=== PATIENT | female | born 1930 | race Caucasian/White ===

== ENCOUNTER 2017-11-18 11:22 | Inpatient (IN) | payer MEDICARE, OTHER ==
[~2017-11-18] VITALS: Ht 152.4 cm; Wt 61.3 kg
[2017-11-18] MEDS ORDERED: SODIUM CHLORIDE 0.9% 500 ML IVB ONE (11:29)
[2017-11-18 11:50] LABS: Basophils # (auto) 0 uL; Basophils % (auto) 0.5 % (0.0-2.0); Eosinophils # (auto) 0.2 uL; Eosinophils % (auto) 3.9 % (0.0-7.0); Hematocrit 39.7 % (36.0-46.0); Hemoglobin 13.2 g/dL (12.2-16.2); Lymphocytes # (auto) 0.8 uL; Mean Corpuscular Hemoglobin 31.4 pg (28.0-32.0); Mean Corpuscular Hgb Conc. 33.3 g/dL (32.0-36.0); Mean Corpuscular Volume 94.5 fL (80.0-100.0); Monocytes # (auto) 0.6 uL; Monocytes % (auto) 9.9 % (0.0-12.0); Neutrophils # (auto) 4.5 uL; Neutrophils % (auto) 72.7 % (37.0-80.0); Nucleated Red Blood Cells % 0.1 %; Platelet Count (auto) 260 10^3/uL (140-450); Red Blood Cells 4.21 10^6/uL (4.0-5.20); Red Cell Distribution Width 14.3 % (11.8-14.3); White Blood Cell 6.2 10^3/uL (4.4-10.8)
[2017-11-18 12:15] LABS: Albumin 3.4 g/dL (3.4-5.0); BUN/Creatinine Ratio 34.3; Bilirubin, Total 0.5 mg/dL (0.2-1.0); Calcium 9.2 mg/dL (8.5-10.1); Magnesium 2.3 mg/dL (1.6-2.6); Potassium 4.4 mmol/L (3.5-5.1); Total Protein 7.1 g/dL (6.4-8.2)
[2017-11-18] MEDS ORDERED: NITROGLYCERIN 0.4 MG SL TAB SL PRN (19:15)
[2017-11-18] MEDS ORDERED: PROMETHAZINE HCL 25 MG/ML 1ML IV PRN (19:15)
[2017-11-18] MEDS ORDERED: LORazepam 0.5 MG TAB PO PRN (19:15)
[2017-11-18] MEDS ORDERED: TEMAZEPAM 15 MG CAP PO PRN (19:15)
[2017-11-18] MEDS ORDERED: ACETAMINOPHEN 500 MG TAB PO PRN (19:15)
[2017-11-18] MEDS ORDERED: HYDROcodone-ACET 5/325MG TAB PO PRN (19:15)
[2017-11-18] MEDS ORDERED: MORPHINE SULF(PF) 0.5MG/ML 10ML VIAL IV PRN (19:15)
[2017-11-18] MEDS: SODIUM CHLORIDE 0.9% 1,000 ML IV SCH ×2 (19:15→22:50)
[2017-11-18 19:42] LABS: Urine Bacteria MOD /hpf (None Seen); Urine Blood 2+ /uL (Negative); Urine WBC 3481 /hpf (0 - 5); Urine WBC Clumps PRESENT /hpf (None Seen)
[2017-11-18 19:45] LABS: Urine Specific Gravity 1.013 (1.001-1.035)
[2017-11-18] MEDS: FAMOTIDINE (10MG/ML) 2ML VL IV SCH (21:09)
[2017-11-18 22:20] VITALS: BP 122/67
[2017-11-18 23:04] VITALS: BP 122/67
[2017-11-19 05:00] VITALS: BP 119/62
[2017-11-19 07:51] VITALS: BP 113/64
[2017-11-19 08:00] VITALS: BP 113/64
[2017-11-19] MEDS: FAMOTIDINE (10MG/ML) 2ML VL IV SCH (10:03)
[2017-11-19 12:12] VITALS: BP 100/59
[2017-11-19] MEDS ORDERED: CEFTRIAXONE SODIUM 2 GM in D5W 5% 50 ML IV ONE (14:45)
[2017-11-19] MEDS ORDERED: LORA-655 PO ×2 (14:49)
[2017-11-19] MEDS ORDERED: FAMO-12 PO (14:49)
[2017-11-19] MEDS ORDERED: DONE10TA40 PO (14:49)
[2017-11-19] MEDS ORDERED: TRAM50TA2 PO (14:49)
[2017-11-19] MEDS ORDERED: SULI200T4 PO (14:49)
[2017-11-19] MEDS: SODIUM CHLORIDE 0.9% 1,000 ML IV SCH (15:32)
[2017-11-19] MEDS ORDERED: LEV50T PO (16:36)
[2017-11-19] MEDS ORDERED: AMLO5TAB2 PO (16:36)
[2017-11-19] MEDS ORDERED: CALC-315 PO (16:36)
[2017-11-19 16:44] VITALS: BP 115/67
[2017-11-19] MEDS: amLODIPine BESYLATE 5 MG TAB PO SCH (18:47)
[2017-11-19] MEDS: LORazepam 0.5 MG TAB PO SCH (18:47)
[2017-11-19 21:55] VITALS: BP 116/57
[2017-11-19] MEDS ORDERED: CALCIUM W/VIT D (600MG/400IU) TAB PO SCH (22:00)
[2017-11-19] MEDS: SULINDAC 200 MG PO SCH (22:12)
[2017-11-19] MEDS: DONEPEZIL HYDROCHLORIDE 5 MG TAB PO SCH (22:12)
[2017-11-19] MEDS: CALTRATE PO SCH (22:12)
[2017-11-20] MEDS: SODIUM CHLORIDE 0.9% 1,000 ML IV SCH ×3 (01:23→18:47)
[2017-11-20 05:13] VITALS: BP 110/56
[2017-11-20] MEDS: LEVOTHYROXINE SODIUM 50 MCG TAB PO SCH (06:38)
[2017-11-20 07:47] LABS: Basophils # (auto) 0 uL; Basophils % (auto) 0.5 % (0.0-2.0); Eosinophils # (auto) 0.3 uL; Hematocrit 36.8 % (36.0-46.0); Hemoglobin 12.1 g/dL (12.2-16.2); Lymphocytes # (auto) 0.8 uL; Mean Corpuscular Hemoglobin 31.4 pg (28.0-32.0); Monocytes # (auto) 0.5 uL; Neutrophils # (auto) 2.3 uL; Neutrophils % (auto) 59.5 % (37.0-80.0); Nucleated Red Blood Cells % 0.2 %; Platelet Count (auto) 207 10^3/uL (140-450); Red Blood Cells 3.87 10^6/uL (4.0-5.20); Red Cell Distribution Width 14.4 % (11.8-14.3); White Blood Cell 3.9 10^3/uL (4.4-10.8)
[2017-11-20 07:55] LABS: Albumin 2.8 g/dL (3.4-5.0); BUN/Creatinine Ratio 21.1; Bilirubin, Total 0.4 mg/dL (0.2-1.0); Calcium 8.5 mg/dL (8.5-10.1); Potassium 3.8 mmol/L (3.5-5.1); Total Protein 5.9 g/dL (6.4-8.2)
[2017-11-20] MEDS: traMADol HCL 50 MG TAB PO SCH (08:01)
[2017-11-20 09:00] VITALS: BP 121/58
[2017-11-20] MEDS: FAMOTIDINE 20 MG TAB PO SCH (09:06)
[2017-11-20] MEDS: cefTRIAXone 1GM/10ml IVPUSH 10 ML IV SCH (09:06)
[2017-11-20] MEDS: SULINDAC 200 MG PO SCH ×2 (09:07→22:01)
[2017-11-20 12:51] VITALS: BP 123/85
[2017-11-20 17:00] VITALS: BP 131/63
[2017-11-20] MEDS: LORazepam 0.5 MG TAB PO SCH (18:00)
[2017-11-20] MEDS: amLODIPine BESYLATE 5 MG TAB PO SCH (18:01)
[2017-11-20 21:30] VITALS: BP 110/54
[2017-11-20] MEDS: DONEPEZIL HYDROCHLORIDE 5 MG TAB PO SCH (22:01)
[2017-11-20] MEDS: CALTRATE PO SCH (22:01)
[2017-11-21 05:00] VITALS: BP 114/59
[2017-11-21] MEDS: LEVOTHYROXINE SODIUM 50 MCG TAB PO SCH (06:37)
[2017-11-21] MEDS: SODIUM CHLORIDE 0.9% 1,000 ML IV SCH (06:37)
[2017-11-21 08:53] VITALS: BP 110/74
[2017-11-21] MEDS: traMADol HCL 50 MG TAB PO SCH (08:53)
[2017-11-21] MEDS: cefTRIAXone 1GM/10ml IVPUSH 10 ML IV SCH (08:53)
[2017-11-21] MEDS: SULINDAC 200 MG PO SCH (08:54)
[2017-11-21] MEDS: FAMOTIDINE 20 MG TAB PO SCH ×2 (10:00→13:30)
== END 2017-11-21 13:45 | disposition home or self-care (01) | DRG 871 ==
LOC: EDBD 11:22 → ER 11:27 → TELE 11:28 → EAST 22:24 → TELE-EAST 11-19 10:52
PROVIDERS: ADMIT Internal Medicine; ATTEND Family Medicine
DX: A41.9 Sepsis, unspecified organism (principal); G93.41 Metabolic encephalopathy; I69.351 Hemiplegia and hemiparesis following cerebral infarction affecting right dominant side; N39.0 Urinary tract infection, site not specified; E86.0 Dehydration; R62.7 Adult failure to thrive; I10 Essential (primary) hypertension; B96.1 Klebsiella pneumoniae [K. pneumoniae] as the cause of diseases classified elsewhere; E03.9 Hypothyroidism, unspecified; M21.371 Foot drop, right foot; F02.80 Dementia in other diseases classified elsewhere, unspecified severity, without behavioral disturbance, psychotic disturbance, mood disturbance, and anxiety; G30.9 Alzheimer's disease, unspecified; K57.30 Diverticulosis of large intestine without perforation or abscess without bleeding; Z90.49 Acquired absence of other specified parts of digestive tract; Z74.01 Bed confinement status; Z87.81 Personal history of (healed) traumatic fracture
CPT/HCPCS: 36415; 74176; 80053; 81001; 82150; 83690; 83735; 85025; 85652; 87040; 87086; 87088; 87186; 94761; 96361; 96374; J0696; J3490; J7060

== ENCOUNTER 2018-10-16 11:08 | Emergency (ER) | payer MEDICARE, OTHER ==
[~2018-10-16] VITALS: Ht 167.6 cm; Wt 81.6 kg
[~2018-10-16 11:08] MED LIST: AMLO5TAB13 PO; CALC-315 PO; DONE10TA40 PO; FAMO-12 PO; LEV50T PO; LORA-655 PO; SULI200T4 PO; TRAM50TA2 PO
[2018-10-16 11:52] LABS: Urine Bacteria FEW /hpf (None Seen); Urine Blood Negative /uL (Negative); Urine Specific Gravity 1.007 (1.001-1.035); Urine WBC 31 /hpf (0 - 5)
[2018-10-16 13:34] LABS: Basophils # (auto) 0 uL; Basophils % (auto) 0.5 % (0.0-2.0); Eosinophils # (auto) 0.2 uL; Eosinophils % (auto) 3.2 % (0.0-7.0); Hematocrit 31.9 % (36.0-46.0); Hemoglobin 10.5 g/dL (12.2-16.2); Lymphocytes # (auto) 0.6 uL; Lymphocytes % (auto) 11.4 % (10.0-50.0); Mean Corpuscular Hgb Conc. 32.8 g/dL (32.0-36.0); Mean Corpuscular Volume 94.5 fL (80.0-100.0); Monocytes # (auto) 0.5 uL; Monocytes % (auto) 9.5 % (0.0-12.0); Neutrophils % (auto) 75.4 % (37.0-80.0); Nucleated Red Blood Cells % 0.2 %; Platelet Count (auto) 260 10^3/uL (140-450); Red Blood Cells 3.38 10^6/uL (4.0-5.20); Red Cell Distribution Width 16.4 % (11.8-14.3); White Blood Cell 5.3 10^3/uL (4.4-10.8)
[2018-10-16 13:49] LABS: Albumin 3.2 g/dL (3.4-5.0); Calcium 9.1 mg/dL (8.5-10.1); Potassium 4.4 mmol/L (3.5-5.1)
[2018-10-16 13:52] LABS: BUN/Creatinine Ratio 36.1; Bilirubin, Total 0.9 mg/dL (0.2-1.0); Total Protein 7.4 g/dL (6.4-8.2)
[2018-10-16] MEDS ORDERED: cefTRIAXone 1GM/50ML D5W 50 ML IV ONE (16:00)
[2018-10-16 17:46] VITALS: BP 132/42
== END 2018-10-16 18:02 | disposition home or self-care (01) ==
LOC: EDBD 11:08 → ER 11:09
DX: L03.116 Cellulitis of left lower limb (principal); N39.0 Urinary tract infection, site not specified; R74.8 Abnormal levels of other serum enzymes; E46 Unspecified protein-calorie malnutrition; I10 Essential (primary) hypertension; E07.9 Disorder of thyroid, unspecified; Z68.29 Body mass index [BMI] 29.0-29.9, adult; Z90.49 Acquired absence of other specified parts of digestive tract; Z79.899 Other long term (current) drug therapy; Z86.73 Personal history of transient ischemic attack (TIA), and cerebral infarction without residual deficits
CPT/HCPCS: 36415; 80053; 81001; 85025; 93971; 96365; 99284; J0696; 51701

== ENCOUNTER 2019-02-24 08:27 | Inpatient (IN) | payer MEDICARE, OTHER ==
[~2019-02-24] VITALS: Ht 165.1 cm; Wt 74.9 kg
[2019-02-24] VITALS (11 sets, daily range): BP systolic 127–149; BP diastolic 42–64
[2019-02-24] MEDS: SODIUM CHLORIDE 0.9% 1,000 ML IV SCH ×2 (05:35→12:26)
[~2019-02-24 08:27] MED LIST changes: -AMLO5TAB13 PO; +AMLO5TAB15 PO
[2019-02-24] MEDS ORDERED: SODIUM CHLORIDE 0.9% 1,000 ML IVB ONE (09:32)
[2019-02-24 10:32] LABS: Basophils # (auto) 0.1 uL; Eosinophils # (auto) 0.3 uL; Hematocrit 11.1 % (36.0-46.0); Lymphocytes # (auto) 0.9 uL; Mean Corpuscular Hgb Conc. 32.5 g/dL (32.0-36.0); Nucleated Red Blood Cells % 0.2 %; Red Blood Cells 1.46 10^6/uL (4.0-5.20)
[2019-02-24 10:33] LABS: Basophils % (auto) 1.1 % (0.0-2.0); Eosinophils % (auto) 3.4 % (0.0-7.0); Lymphocytes % (auto) 10.2 % (10.0-50.0); Mean Corpuscular Hemoglobin 24.8 pg (28.0-32.0); Mean Corpuscular Volume 76.2 fL (80.0-100.0); Monocytes # (auto) 0.7 uL; Monocytes % (auto) 7.3 % (0.0-12.0); Neutrophils # (auto) 7.2 uL; Platelet Count (auto) 487 10^3/uL (140-450); Red Cell Distribution Width 18.8 % (11.8-14.3); White Blood Cell 9.2 10^3/uL (4.4-10.8)
[2019-02-24 10:40] LABS: Hemoglobin 3.6 g/dL (12.2-16.2)
[2019-02-24 10:47] LABS: Albumin 2.5 g/dL (3.4-5.0); Anion Gap 6 (5-15); Aspartate Aminotransferase 19 U/L (15-37); BUN/Creatinine Ratio 29.9; Blood Urea Nitrogen 20 mg/dL (7-18); Calcium 8.3 mg/dL (8.5-10.1); Carbon Dioxide 23 mmol/L (21-32); Chloride 111 mmol/L (98-107); GFR African American 107 mL/min; GFR Non-African American 88 mL/min; Glucose 105 mg/dL (74-106); Magnesium 2.4 mg/dL (1.6-2.6); Potassium 4.1 mmol/L (3.5-5.1); Sodium 140 mmol/L (136-145)
[2019-02-24 10:51] LABS: Alanine Aminotransferase 18 U/L (13-56); Alkaline Phosphatase 184 U/L (45-117); Bilirubin, Total 0.5 mg/dL (0.2-1.0); Total Protein 6.5 g/dL (6.4-8.2)
[2019-02-24 11:57] LABS: Urine Bacteria MANY /hpf (None Seen); Urine Blood 1+ /uL (Negative); Urine Specific Gravity 1.014 (1.001-1.035); Urine WBC 94 /hpf (0 - 5)
[2019-02-24] MEDS ORDERED: ACETAMINOPHEN 500 MG TAB PO PRN (12:00)
[2019-02-24] MEDS ORDERED: MORPHINE SULF INJ 2 MG/ML SYRINGE 1ML IV PRN ×2 (12:00)
[2019-02-24] MEDS ORDERED: NITROGLYCERIN 0.4 MG SL TAB SL PRN (12:00)
[2019-02-24] MEDS ORDERED: HYDROcodone-ACET 5/325MG TAB PO PRN (12:00)
[2019-02-24] MEDS ORDERED: ONDANSETRON HCL 4 MG/2 ML VIAL IV PRN (12:00)
[2019-02-24 18:52] LABS: Hematocrit 23.8 % (36.0-46.0); Hemoglobin 7.8 g/dL (12.2-16.2)
--- NOTE | 2019-02-24 20:04 | NUR ---
Telemetry admit from [facility] admitted to Telemetry unit. Patient oriented to KIARA NEFF RN primary RN, unit telemetry, room 290, bed A, and unit policies regarding patient care and visiting hours. Patient now on continuous telemetry monitoring, tele box #[id number] and telemetry reading on arrival to unit is sinus rhythm. Patient weighed by bedscale and encouraged to call if they need something. All questions and concerns addressed, patient verbalized understanding.
[2019-02-24] MEDS: DONEPEZIL HYDROCHLORIDE 5 MG TAB PO SCH (21:59)
[2019-02-25] VITALS (7 sets, daily range): BP systolic 143–161; BP diastolic 66–110
--- NOTE | 2019-02-25 | NUR ---
Rounds Patient sleeping. No S/S of distress/SOB or pain. Will continue to monitor changes q1hr and PRN.
--- NOTE | 2019-02-25 04:13 | NUR ---
Rounds Patient sleeping. No S/S of distress/SOB or pain. Will continue to monitor changes q1hr and PRN.
--- NOTE | 2019-02-25 07:30 | NUR ---
Opening Shift Note RECEIVED REPORT FROM NOC RN. Assumed care of patient, awake and alert. No S/S of distress/SOB or pain. BED IN LOWEST, LOCKED POSITION WITH SIDERAILS UP x2 AND CALL LIGHT WITHIN REACH. Instructed on POC and to call for assist PRN, will continue to monitor for changes Q1hr and PRN.
--- NOTE | 2019-02-25 07:30 | NUR ---
SHIFT CLOSING NOTE. ENDORSED CARE OF PATIENT TO DAY SHIFT, FARHAT YU.
[2019-02-25] MEDS ORDERED: LEVOTHYROXINE SODIUM 50 MCG TAB PO SCH (08:00)
[2019-02-25] MEDS: cefTRIAXone 1GM/50ML D5W 50 ML IV SCH (08:49)
[2019-02-25] MEDS ORDERED: PANTOPRAZOLE 40 MG TAB PO SCH (10:00)
--- NOTE | 2019-02-25 10:43 | NUR ---
DR. MERRILL AT BEDSIDE.
[2019-02-25] MEDS: PANTOPRAZOLE 40 MG/10 ML VIAL INJ IV SCH ×2 (11:30→23:15)
--- NOTE | 2019-02-25 11:30 | NUR ---
WOUND CARE NOTE: IN TO SEE PATIENT AT THIS TIME PER WOUND CARE CONSULT REQUEST. PATIENT WAS NOTED UPON ADMIT TO HAVE WOUNDS. WOUNDS WERE PHOTOGRAPHED AT THAT TIME BY BEDSIDE NURSE FOR REFERENCE. PATIENT ADMITTED TO [facility] WITH DIAGNOSIS OF SEVERE ANEMIA. CURRENT EDYTA SCORE IS 13. SHE IS ABLE TO ASSIST WITH HER TURNING/REPOSITIONG. PATIENT IS PLEASANTLY CONFUSED. PATIENT IS INCONTINENT OF BOWEL AND BLADDER. CURRENTLY, SHE HAS AN INDWELLING PRASAD CATHETER PLACED. PATIENT HAS HAD MULTIPLE EPISODES WITH INCONTINENT LIQUID STOOL. PATIENT NOTED TO HAVE SEVERE MASD WITH SKIN EROSION TO MULTIPLE AREAS OF PERINEUM/PERIANAL SKIN. PATIENT WOULD BENEFIT FROM: FREQUENT TURN SCHEDULE Q 2HOURS, PRN CONDITION PERMITS, WITH PRESSURE REDISTRIBUTION USING PILLOWS/WEDGES, BID/PRN APPLICATION WITH THICK LAYERS OF ZGUARD/XEROFORM TO SKIN ERODED AREAS OF PERIANAL/PERINEUM, OPTIFOAM GENTLE SACRAL DRESSING PREVENTATIVE, SKIN/WOUND CARE PLAN, DIETARY CONSULT, FREQUENT PERICARE NEEDED AFTER EVERY STOOL, CONTINUED MONITORING BY WOUND CARE TEAM. Addendum: 02/25/19 at 1945 by Maryann Magallanes RN Amended: Links added.
[2019-02-25 13:57] LABS: Potassium 3.8 mmol/L (3.5-5.1)
[2019-02-25 14:10] LABS: Basophils # (auto) 0 uL; Lymphocytes # (auto) 0.8 uL; Monocytes # (auto) 0.6 uL; Neutrophils # (auto) 7.3 uL
[2019-02-25 14:13] LABS: Basophils % (auto) 0.5 % (0.0-2.0); Eosinophils # (auto) 0.2 uL; Eosinophils % (auto) 2.7 % (0.0-7.0); Hematocrit 25.8 % (36.0-46.0); Hemoglobin 8.2 g/dL (12.2-16.2); Mean Corpuscular Hgb Conc. 31.7 g/dL (32.0-36.0); Mean Corpuscular Volume 82.1 fL (80.0-100.0); Neutrophils % (auto) 80.8 % (37.0-80.0); Nucleated Red Blood Cells % 0.4 %; Platelet Count (auto) 408 10^3/uL (140-450); Red Blood Cells 3.14 10^6/uL (4.0-5.20); Red Cell Distribution Width 17.6 % (11.8-14.3)
[2019-02-25] MEDS: SODIUM CHLORIDE 0.9% 1,000 ML IV SCH (15:38)
[2019-02-25 18:28] LABS: Basophils # (auto) 0 uL; Basophils % (auto) 0.4 % (0.0-2.0); Eosinophils # (auto) 0.3 uL; Monocytes # (auto) 0.8 uL
[2019-02-25 18:30] LABS: Hematocrit 25.9 % (36.0-46.0); Hemoglobin 8.3 g/dL (12.2-16.2); Lymphocytes % (auto) 10.1 % (10.0-50.0); Mean Corpuscular Volume 81.3 fL (80.0-100.0); Monocytes % (auto) 8.3 % (0.0-12.0); Neutrophils # (auto) 7.4 uL; Neutrophils % (auto) 78.2 % (37.0-80.0); Nucleated Red Blood Cells % 0.3 %; Platelet Count (auto) 400 10^3/uL (140-450); Red Blood Cells 3.18 10^6/uL (4.0-5.20); Red Cell Distribution Width 17.8 % (11.8-14.3); White Blood Cell 9.5 10^3/uL (4.4-10.8)
--- NOTE | 2019-02-25 19:30 | NUR ---
Opening Shift Note Assumed care of patient, awake, alert and oriented x1. No S/S of distress/SOB or pain. Instructed on POC and to call for assist PRN, will continue to monitor for changes Q1hr and PRN.
[2019-02-25] MEDS: DONEPEZIL HYDROCHLORIDE 5 MG TAB PO SCH (23:15)
[2019-02-26] MEDS: SODIUM CHLORIDE 0.9% 1,000 ML IV SCH ×2 (03:57→17:23)
[2019-02-26 05:29] VITALS: BP 115/54
[2019-02-26 07:43] LABS: Basophils # (auto) 0.1 uL; Basophils % (auto) 0.8 % (0.0-2.0); Eosinophils # (auto) 0.4 uL; Eosinophils % (auto) 3.5 % (0.0-7.0); Hematocrit 27.1 % (36.0-46.0); Lymphocytes # (auto) 1.2 uL; Lymphocytes % (auto) 11.3 % (10.0-50.0); Mean Corpuscular Hemoglobin 27.3 pg (28.0-32.0); Mean Corpuscular Hgb Conc. 33.3 g/dL (32.0-36.0); Mean Corpuscular Volume 81.9 fL (80.0-100.0); Monocytes # (auto) 1.7 uL; Monocytes % (auto) 15.3 % (0.0-12.0); Neutrophils # (auto) 7.6 uL; Neutrophils % (auto) 69.1 % (37.0-80.0); Nucleated Red Blood Cells % 0.4 %; Platelet Count (auto) 369 10^3/uL (140-450); Red Blood Cells 3.31 10^6/uL (4.0-5.20); Red Cell Distribution Width 18.1 % (11.8-14.3)
[2019-02-26] MEDS: LEVOTHYROXINE SODIUM 25 MCG TAB PO SCH (08:17)
[2019-02-26 08:34] VITALS: BP 154/74
[2019-02-26] MEDS: cefTRIAXone 1GM/50ML D5W 50 ML IV SCH (08:53)
--- NOTE | 2019-02-26 10:25 | NUR ---
DR. MERRILL AT BEDSIDE.
[2019-02-26] MEDS: PANTOPRAZOLE 40 MG/10 ML VIAL INJ IV SCH ×2 (10:27→23:08)
[2019-02-26] MEDS ORDERED: CIPROFLOXACIN 400MG/200ML 200 ML IV ONE (11:00)
[2019-02-26 12:02] VITALS: BP 147/63
[2019-02-26 12:30] VITALS: BP 147/63
[2019-02-26 14:10] LABS: Albumin 2.7 g/dL (3.4-5.0); BUN/Creatinine Ratio 7.5; Calcium 8.5 mg/dL (8.5-10.1); Magnesium 2.2 mg/dL (1.6-2.6)
--- NOTE | 2019-02-26 14:15 | NUR ---
NUTRITION CONSULT/ASSESSMENT NOTES Please refer to link notes of nutrition screen form filed under the intervention section of the plan of care for further details. Est. Needs: 1650 kcal to 2050 kcal (20-25 kcal/kgBW), 82 gms to 98 gms pro (1.0-1.2 gms/kgBW). Will continue to monitor pertinent labs and reassess nutrient need prn Thank you for this consult. Addendum: 02/26/19 at [address] Amended: Links added.
[2019-02-26 14:20] LABS: Bilirubin, Total 0.1 mg/dL (0.2-1.0); Potassium 3.8 mmol/L (3.5-5.1); Total Protein 7.2 g/dL (6.4-8.2)
--- NOTE | 2019-02-26 15:15 | NUR ---
IV removal IV DC'd with clean sterile technique, catheter fully intact. Pressure dressing applied to site. Patient tolerated well.
--- NOTE | 2019-02-26 15:15 | NUR ---
IV insertion IV access obtained, via clean sterile technique by inserting 22 gauge catheter at RIGHT UPPER CHEST after 2 attempt(s). IV secured properly. No trauma to site. Patient tolerated well.
[2019-02-26 17:28] VITALS: BP 145/48
--- NOTE | 2019-02-26 19:00 | NUR ---
Opening Shift Note Assumed care of patient, awake and alert and oriented x 2. No S/S of distress/SOB or pain. Instructed on POC and to call for assist PRN, will continue to monitor for changes Q1hr and PRN.
[2019-02-26 21:18] VITALS: BP 167/61
[2019-02-26] MEDS: CIPROFLOXACIN 400MG/200ML 200 ML IV SCH (23:08)
[2019-02-26] MEDS: DONEPEZIL HYDROCHLORIDE 5 MG TAB PO SCH (23:08)
[2019-02-27] MEDS ORDERED: ENALAPRILAT 1.25 MG/ML-1ML VIAL IV PRN
[2019-02-27 05:15] VITALS: BP 154/76
[2019-02-27] MEDS: SODIUM CHLORIDE 0.9% 1,000 ML IV SCH ×2 (07:00→22:59)
--- NOTE | 2019-02-27 08:00 | NUR ---
Morning note Patient resting in bed with even and unlabored respirations, no distress noted. Patient is A&Ox3 (name/, place and time). Instructed patient on POC, fall precautions and to call for assistance as needed. Patient verbalized understanding. Fall precautions in place with bed in lowest locked position, x2 side rails up and call light within reach. Bed alarm on for safety. Hurley catheter patent and draining.
[2019-02-27 09:31] VITALS: BP 150/73
[2019-02-27] MEDS: PANTOPRAZOLE 40 MG/10 ML VIAL INJ IV SCH ×2 (09:32→22:58)
[2019-02-27] MEDS: CIPROFLOXACIN 400MG/200ML 200 ML IV SCH ×2 (09:32→22:58)
[2019-02-27] MEDS: LEVOTHYROXINE SODIUM 25 MCG TAB PO SCH (09:33)
--- NOTE | 2019-02-27 09:50 | NUR ---
RE: BM Patient had moderate amount of liquid, brown, foul smelling BM. No blood noted. Patient cleansed and repositioned for comfort. Z-guard applied per MD's order. Patient tolerated okay. Minimal facial grimacing noted. PRN pain medication not requested. Bed returned to lowest locked position with bed alarm on for safety. Call light within reach.
--- NOTE | 2019-02-27 10:57 | NUR ---
SCD's placed per MD's order
[2019-02-27 11:12] LABS: Anion Gap 10 (5-15); BUN/Creatinine Ratio 6.6; Blood Urea Nitrogen 5 mg/dL (7-18); Calcium 7.8 mg/dL (8.5-10.1); Carbon Dioxide 21 mmol/L (21-32); Chloride 109 mmol/L (98-107); GFR African American 92 mL/min; GFR Non-African American 76 mL/min; Glucose 124 mg/dL (74-106); Potassium 3.7 mmol/L (3.5-5.1); Sodium 140 mmol/L (136-145)
[2019-02-27 11:13] LABS: Basophils # (auto) 0 uL; Basophils % (auto) 0.6 % (0.0-2.0); Eosinophils # (auto) 0.3 uL; Eosinophils % (auto) 4.4 % (0.0-7.0); Hematocrit 25.6 % (36.0-46.0); Hemoglobin 8.3 g/dL (12.2-16.2); Lymphocytes # (auto) 0.6 uL; Lymphocytes % (auto) 9.2 % (10.0-50.0); Mean Corpuscular Hemoglobin 25.7 pg (28.0-32.0); Mean Corpuscular Hgb Conc. 32.3 g/dL (32.0-36.0); Mean Corpuscular Volume 79.5 fL (80.0-100.0); Monocytes # (auto) 0.6 uL; Monocytes % (auto) 9.5 % (0.0-12.0); Neutrophils # (auto) 4.8 uL; Neutrophils % (auto) 76.3 % (37.0-80.0); Nucleated Red Blood Cells % 0.1 %; Platelet Count (auto) 371 10^3/uL (140-450); Red Blood Cells 3.22 10^6/uL (4.0-5.20); Red Cell Distribution Width 18.5 % (11.8-14.3); White Blood Cell 6.3 10^3/uL (4.4-10.8)
[2019-02-27 11:30] LABS: Free T4 (Free Thyroxine) 0.96 ng/dL (0.89-1.76)
[2019-02-27 11:32] LABS: Folate (Folic Acid) > 24.00 ng/mL (5.38-24)
--- NOTE | 2019-02-27 11:42 | NUR ---
MD was at bedside - Dr. Rodriguez Informed MD of patient's loose stool. MD verbalized understanding. Orders received and read back to verify.
--- NOTE | 2019-02-27 11:45 | NUR ---
Chacha midline/PICC RN spoke with ANNALISA Luo.
[2019-02-27] MEDS ORDERED: IOHEXOL 300 MG/ML 100ML BOTTLE IJ ONE (13:00)
[2019-02-27 13:44] VITALS: BP 137/65
--- NOTE | 2019-02-27 14:36 | NUR ---
Patient resting in bed with even and unlabored respirations, no distress noted. No visitors at bedside. Active midline order in place.
--- NOTE | 2019-02-27 15:15 | NUR ---
20g IV attempted 20g IV insertion attempted by whit Le RN, for active CT ABD/PEL with contrast order. Attempt was unsuccessful. Patient tolerated well. Bed returned to lowest locked position with x2 side rails up, call light within reach and bed alarm on for safety. Active midline order in place. Attempted to call midline/PICC RN. Phone is busy. whit Le RN, aware of active midline order and active CT abd/pel with contrast order.
--- NOTE | 2019-02-27 16:26 | NUR ---
Paged midline/PICC line RN spoke with ANNALISA Wells.
[2019-02-27 17:47] VITALS: BP 142/67
--- NOTE | 2019-02-27 18:30 | NUR ---
RE: active CT ABD/PEL with contrast order. Updated Dr. Rodriguez that CT ABD/PEL with contrast has not been completed due to proper IV access not being obtained. Active midline order in place. verbalized understanding. Order obtained and read back to verify.
--- NOTE | 2019-02-27 18:45 | NUR ---
Closing note patient resting in bed with even and unlabored respirations, no distress noted. Fall precautions in place with bed in lowest locked position, call light within reach, bed alarm on for safety. Bilateral SCD's in place per MD order. 22g IV to right upper chest is patent with no s/s of phlebitis and/or infiltration. Active midline order in place.
--- NOTE | 2019-02-27 18:55 | NUR ---
Visitor at bedside - IV contrast consent Abiola, caregiver, at bedside states "my sister and my mom have power of attorney at law. My sister will be here tomorrow morning at 8:30 and bring the copy of the power of attorney at law and sign the consent."
--- NOTE | 2019-02-27 19:29 | NUR ---
Care endorsed to FARHAT Evans. Addendum: 02/27/19 at 1934 by Marie Nuñez RN Endorsed IV contrast consent to FARHAT Evans. Nathan verbalized understanding.
[2019-02-27 22:00] VITALS: BP 163/76
[2019-02-27] MEDS: DONEPEZIL HYDROCHLORIDE 5 MG TAB PO SCH (22:58)
[2019-02-28 05:21] VITALS: BP 133/91
[2019-02-28 07:06] LABS: RPR Non Reactive (Non Reactive)
--- NOTE | 2019-02-28 07:45 | NUR ---
Opening Shift Note Assumed care of patient, awake, and alert. No S/S of distress/SOB or pain. Bed in low/locked position, bed rails up x2. Instructed on POC and to call for assist PRN with call light within reach. All questions/concerns answered. Will continue to monitor for changes Q1hr and PRN.
[2019-02-28 07:57] VITALS: BP 148/62
[2019-02-28] MEDS: SODIUM CHLORIDE 0.9% 1,000 ML IV SCH ×2 (08:43→20:56)
[2019-02-28] MEDS: LEVOTHYROXINE SODIUM 25 MCG TAB PO SCH (08:43)
[2019-02-28] MEDS: CIPROFLOXACIN 400MG/200ML 200 ML IV SCH ×2 (10:00→21:30)
[2019-02-28] MEDS: PANTOPRAZOLE 40 MG/10 ML VIAL INJ IV SCH ×2 (10:00→21:31)
--- NOTE | 2019-02-28 10:30 | NUR ---
assessment Patient is a 88 year old female who is answering appropriately. Per one of patients caregivers prior to admission patient lived home with 24 hour caregivers and functioned with assistance. Per patient she will return home to her prior living arrangements post discharge and Nora her main caregiver will transport her home. Patient has a wheelchair and hospital bed for home use. Patients PCP is Dr Bowman. Patient is on service with [facility] prior to admission for PT, vitals, and med management. Patient will need a resumption order on discharge. I informed patient she has a right to speak to a high school social studies teacher regarding all care. I informed patient she has a right to participate in any and all discharge planning. Patient has a POA and advanced directive. Her son Mustapha is POA. Patient verbalized understanding and agreed to discharge plan. Addendum: 03/01/19 at 1037 by Tatiana CAPUTO Amended: Links added.
[2019-02-28] MEDS ORDERED: IOHEXOL 300 MG/ML 100ML BOTTLE IJ ONE (11:08)
[2019-02-28 12:51] VITALS: BP 138/63
--- NOTE | 2019-02-28 14:28 | NUR ---
Midline Placement: Patient educated on need for midline placement. All risks and benefits explained and all questions and concerns addresses prior to procedure. 3Fr 20cm midline inserted via brachial vein using Ultrasound. Sterile technique utilized. Blood return obtained from single lumen and flushed easily with NS using proper technique. Midline secured with saline lock; biodisc and occlusive dressing applied. Primary RN notified. Midline lot #[id number] EXTERNAL LENGTH 0CM iNTERNAL LENGTH 20 CM.
[2019-02-28 16:28] VITALS: BP 147/47
--- NOTE | 2019-02-28 19:30 | NUR ---
assumed care, pt. awake, no c/o pain, no sob.
[2019-02-28] MEDS: DONEPEZIL HYDROCHLORIDE 5 MG TAB PO SCH (21:31)
[2019-02-28 22:00] VITALS: BP 145/87
[2019-03-01 06:02] VITALS: BP 123/84
--- NOTE | 2019-03-01 07:20 | NUR ---
Opening Shift Note Assumed care of patient, asleep. No S/S of distress/SOB or pain. Bed in low/locked position, bed rails up x2. Will continue to monitor for changes Q1hr and PRN.
[2019-03-01] MEDS: LEVOTHYROXINE SODIUM 25 MCG TAB PO SCH (08:29)
[2019-03-01] MEDS: PANTOPRAZOLE 40 MG/10 ML VIAL INJ IV SCH ×2 (08:29→21:41)
[2019-03-01] MEDS: CIPROFLOXACIN 400MG/200ML 200 ML IV SCH ×2 (08:30→21:41)
[2019-03-01 09:00] VITALS: BP 127/58
--- NOTE | 2019-03-01 11:15 | NUR ---
MD ROUNDS DR REDD AT BEDSIDE DISCUSSING POC WITH PATIENT. WILL CONTINUE TO MONITOR
--- NOTE | 2019-03-01 11:20 | NUR ---
Nutrition Follow-up Notes Wt.: 71.2 kg Pt. unable to answer nutrition related questions d/t history of Dementia and confusion. Per documentations, pt. is consuming 25-100%, variable appetite x 3 days. No reported GI distress at this time associated with current diet. Est. Needs: 1650 kcal to 2050 kcal (20-25 kcal/kgBW), 82 gms to 98 gms pro (1.0-1.2 gms/kgBW). Will continue to monitor pertinent labs and reassess nutrient need prn Labs: BG 124H, Ca 7.8L Skin: [place] 14, mod risk, MASD to gluteal region GI: +colectomy BM x 2 today per hot tar roofer helper PES: Altered nutrition related lab values RT acute/chronic medical condition AEB hyperglycemia,hypocapnia, hyperchloremia, elev. ALP, hypocalcemia and mod hypoalbuminemia (ongoing) Monitor: Skin integrity, weights, PO intake/tolerance to diet, GI function, labs PO intake to meet >75% estimated needs by following assessment F/U: MR 3-5 days Rec. 1) Continue Clear liquid diet as ordered and as tolerated. When medically able, advance diet to regular diet as tolerated. 2) Continue POC as ordered
[2019-03-01 13:00] VITALS: BP 125/60
[2019-03-01] MEDS: SODIUM CHLORIDE 0.9% 1,000 ML IV SCH (13:08)
[2019-03-01 16:54] VITALS: BP 115/95
--- NOTE | 2019-03-01 19:30 | NUR ---
assumed care, pt. awake, oriented x2, no c/o pain, not in distress.
[2019-03-01] MEDS: DONEPEZIL HYDROCHLORIDE 5 MG TAB PO SCH (21:41)
[2019-03-01 22:00] VITALS: BP 151/68
[2019-03-02] VITALS (12 sets, daily range): BP systolic 130–152; BP diastolic 43–75
[2019-03-02] MEDS: SODIUM CHLORIDE 0.9% 1,000 ML IV SCH (01:17)
[2019-03-02 04:37] LABS: Basophils # (auto) 0 uL; Basophils % (auto) 0.7 % (0.0-2.0); Eosinophils # (auto) 0.4 uL; Eosinophils % (auto) 6.2 % (0.0-7.0); Hematocrit 24.1 % (36.0-46.0); Hemoglobin 7.6 g/dL (12.2-16.2); Lymphocytes # (auto) 0.8 uL; Lymphocytes % (auto) 12.4 % (10.0-50.0); Mean Corpuscular Hemoglobin 26.3 pg (28.0-32.0); Mean Corpuscular Hgb Conc. 31.7 g/dL (32.0-36.0); Mean Corpuscular Volume 82.9 fL (80.0-100.0); Monocytes # (auto) 0.7 uL; Monocytes % (auto) 11.2 % (0.0-12.0); Neutrophils # (auto) 4.3 uL; Neutrophils % (auto) 69.5 % (37.0-80.0); Nucleated Red Blood Cells % 0.1 %; Platelet Count (auto) 318 10^3/uL (140-450); Red Blood Cells 2.91 10^6/uL (4.0-5.20); Red Cell Distribution Width 18.9 % (11.8-14.3); White Blood Cell 6.1 10^3/uL (4.4-10.8)
[2019-03-02 04:56] LABS: BUN/Creatinine Ratio 4.7; Calcium 7.7 mg/dL (8.5-10.1); Potassium 3.3 mmol/L (3.5-5.1)
[2019-03-02] MEDS: LEVOTHYROXINE SODIUM 25 MCG TAB PO SCH (07:46)
[2019-03-02] MEDS: PANTOPRAZOLE 40 MG/10 ML VIAL INJ IV SCH ×2 (07:46→21:10)
[2019-03-02] MEDS: CIPROFLOXACIN 400MG/200ML 200 ML IV SCH (07:47)
[2019-03-02] MEDS ORDERED: POTASSIUM EFFERVESENT TAB 25 MEQ PO ONE (08:45)
--- NOTE | 2019-03-02 08:46 | NUR ---
MD ROUNDS DR MERRILL AT BEDSIDE DISCUSSING POC WITH PATIENT. NEW ORDERS RECEIVED/CARRIED OUT. WILL CONTINUE TO MONITOR
--- NOTE | 2019-03-02 10:05 | NUR ---
ROUNDS DR LINDSEY AT BEDSIDE DISCUSSING POC WITH PATIENT AND CAREGIVER, TAY, DISCUSSING POC. ALL QUESTIONS/CONCERNS ANSWERED. WILL CONTINUE TO MONITOR. Addendum: 03/02/19 at 1134 by JONO SEWELL RN RN NEW ORDERS RECEIVED/CARRIED OUT
[2019-03-02 10:43] LABS: INR 1.06 (0.9-1.15)
[2019-03-02 10:51] LABS: % Iron Saturation 3.7 % (15-50)
--- NOTE | 2019-03-02 19:15 | NUR ---
assumed care, pt. awake, oriented x2, repositioned pt. no c/o pain, not in distress.
[2019-03-02] MEDS: DONEPEZIL HYDROCHLORIDE 5 MG TAB PO SCH (21:11)
[2019-03-03 05:12] VITALS: BP 135/49
--- NOTE | 2019-03-03 07:50 | NUR ---
OPENING SHIFT NOTE ASSUMED CARE OF PATIENT. PT IS AWAKE AND ALERT AND ORIENTED X3. NO SOB OR SIGNS OF DISTRESS NOTED. INSTRUCTED ON POC AND TO CALL FOR ASSISTANCE IF NEEDED. BED IN LOWEST POSITION WITH SIDE RAILS UP X2. WILL CONTINUE TO MONITOR.
[2019-03-03 08:37] VITALS: BP 140/53
[2019-03-03] MEDS ORDERED: LIDOCAINE VISCOUS 2% 15ML UD ONE (08:38)
[2019-03-03] MEDS ORDERED: SODIUM CHLORIDE LOCK 10 ML ONE (08:38)
[2019-03-03] MEDS ORDERED: MIDAZOLAM HCL 5 MG/ML-1ML VIAL ONE (08:39)
[2019-03-03] MEDS ORDERED: diphenhdrAMINE HCL 50 MG/1 ML VL ONE (08:39)
[2019-03-03] MEDS ORDERED: fentaNYL CITRATE 100 MCG/2 ML VL ONE (08:39)
[2019-03-03] MEDS: PANTOPRAZOLE 40 MG/10 ML VIAL INJ IV SCH ×2 (09:47→22:00)
--- NOTE | 2019-03-03 11:15 | NUR ---
WHEELED PATIENT DOWN TO PREOP FOR PROCEDURE. NO DISTRESS NOTED.
--- NOTE | 2019-03-03 13:12 | NUR ---
PATIENT WAS OUT OF THE ROOM
--- NOTE | 2019-03-03 13:31 | NUR ---
PATIENT RETURNED FROM PROCEDURE AND IS RESTING COMFORTABLY IN BED. RECEIVED REPORT FROM OR NURSE. NO DISTRESS NOTED AT THIS TIME.
--- NOTE | 2019-03-03 16:16 | NUR ---
Discharge planning per consult, patient has orders for home health for PT and [facility]. Patient and director of healthcare systems were provided a choice letter and choose [facility] as their chosen provider. Referral faxed, placed a follow up call, spoke with Ghislaine and was advised that they will accept this patient and start of care will be within 24-48 hours. Please contact Ghislaine at [phone] upon discharge if over the weekend so that she can ensure the company makes contact with the patient. Addendum: 03/03/19 at 1639 by CHRISTIN HOUSE Amended: Links added.
[2019-03-03 17:00] VITALS: BP 152/61
[2019-03-03 17:11] LABS: Hemoglobin 10.4 g/dL (12.2-16.2)
[2019-03-03 17:16] LABS: Hematocrit 33.5 % (36.0-46.0)
[2019-03-03] MEDS: LEVOTHYROXINE SODIUM 25 MCG TAB PO SCH (17:20)
[2019-03-03 17:57] VITALS: BP 152/61
--- NOTE | 2019-03-03 18:38 | NUR ---
DISCHARGE TRANSPORTATION CALLED PTS CAREGIVER TO ARRANGE TRANSPORT HOME. CAREGIVER TOLD ME HER TRANSPORTATION COMPANY CLOSES AT 5PM AND THAT SHE WOULD NOT BE ABLE TO TAKE HER HOME TODAY. DR PALACIO COULD NOT BE REACHED. PAGED [employer]. AWAITING CALL BACK.
--- NOTE | 2019-03-03 18:55 | NUR ---
SPOKE WITH CHRISTIN FROM [employer] ABOUT PT MEDICAL TRANSPORTATION. PER CHRISTIN, PT IS TO STAY OVER NIGHT NO TRANSPORTATION WILL BE AVAILABLE UNTIL MORNING. WILL NOTIFY CHARGE NURSE AND MANUFACTURING ACCOUNTANT.
--- NOTE | 2019-03-03 19:30 | NUR ---
Opening Shift Note Assumed care of patient, awake and alert, with periods of confusion/forgetfulness. [place] to both ears. Caregiver at bedside . No S/S of distress/SOB or pain. Turning q2. Instructed on POC and to call for assist PRN, will continue to monitor for changes Q1hr and PRN.
--- NOTE | 2019-03-03 19:48 | NUR ---
Spoke with Ghislaine from [facility] at start of shift. Requesting we hold discharge tonight because patients daughter is worried about her going home so late. Will call Dr. Granados to notify and hold discharge until tomorrow and medical transport could be set up.
[2019-03-03 22:00] VITALS: BP 134/77
--- NOTE | 2019-03-03 22:30 | NUR ---
Called and left message with Ghislaine from [facility]. Informed her we would be holding discharge until tomorrow when transport could be set up.
[2019-03-03] MEDS: DONEPEZIL HYDROCHLORIDE 5 MG TAB PO SCH (22:46)
[2019-03-04 05:00] VITALS: BP 139/69
[2019-03-04] MEDS: LEVOTHYROXINE SODIUM 25 MCG TAB PO SCH (07:24)
[2019-03-04 09:00] VITALS: BP 121/67
--- NOTE | 2019-03-04 09:27 | NUR ---
PT Patient refused to be OOB during morning PT visit and stated she just finished breakfast. Addendum: 03/04/19 at 0928 by JESSICA TABARES PTT Amended: Links added.
[2019-03-04] MEDS: PANTOPRAZOLE 40 MG/10 ML VIAL INJ IV SCH (09:40)
--- NOTE | 2019-03-04 10:35 | NUR ---
Discharge instructions given as ordered. Encourage to follow up with PMD (Follow up with PCP in [address] Radhika Zamarripa #[phone] Address : [address] . Follow up with oncol/hematology Dr. Ivonne Matthews in 03/14/19 at 2.50 PM # [phone] Ext [phone] Address : [address] [place], [address]. Follow up with [facility] )as instructed. All questions and concerns addressed. Patient verbalized understanding. Medication reconciliation form completed and copy given to patient. IV removed with catheter intact, pressure dressing applied. Telemetry unit returned to ICU. Patient taken to vehicle via wheelchair with all personal belongings, accompanied by staff and family member. No distress noted at time of departure.
== END 2019-03-04 10:35 | disposition home health service (06) | DRG 811 ==
LOC: EDBD 08:27 → ER 08:27 → TELE 08:28 → TELE-WESTW 20:04
PROVIDERS: ADMIT Nurse Practitioner Acute Care; ATTEND Internal Medicine Pulmonary Disease
PROC: 30233N1 Transfusion of Nonautologous Red Blood Cells into Peripheral Vein, Percutaneous Approach (ICD-10-PCS; principal; 2019-03-02)
PROC: 0DJ08ZZ Inspection of Upper Intestinal Tract, Via Natural or Artificial Opening Endoscopic (ICD-10-PCS; 2019-03-03)
DX: D64.9 Anemia, unspecified (principal); G93.41 Metabolic encephalopathy; N39.0 Urinary tract infection, site not specified; E44.0 Moderate protein-calorie malnutrition; E03.9 Hypothyroidism, unspecified; E66.9 Obesity, unspecified; G30.9 Alzheimer's disease, unspecified; I11.9 Hypertensive heart disease without heart failure; F02.80 Dementia in other diseases classified elsewhere, unspecified severity, without behavioral disturbance, psychotic disturbance, mood disturbance, and anxiety; Z68.27 Body mass index [BMI] 27.0-27.9, adult; Z74.01 Bed confinement status; Z86.73 Personal history of transient ischemic attack (TIA), and cerebral infarction without residual deficits
CPT/HCPCS: 36415; 43235; 70450; 71045; 74177; 80048; 80053; 81001; 82270; 82607; 82728; 82746; 83540; 83550; 83605; 83615; 83735; 84439; 84443; 84484; 85014; 85018; 85025; 85045; 85048; 85610; 85730; 86592; 86850; 86900; 86901; 86920; 87040; 87045; 87086; 87088; 87177; 87186; 87427; 87493; 93005; 94761; 96360; 97110; 97530; C9113; G0378; J0696; J2250